=== PATIENT | male | born 1985 | race Caucasian/White ===

== ENCOUNTER 2017-08-19 20:05 | Emergency (ER) | payer SELFPAY ==
[~2017-08-19] VITALS: Ht 182.9 cm; Wt 120.0 kg
[2017-08-19 20:18] VITALS: BP 160/91; PULSE 88; RESP 24; TEMP 97.8; O2SAT 100
[2017-08-19] MEDS ORDERED: DEPA500T3 PO (21:29)
--- NOTE | 2017-08-19 22:02 | PD ---
HPI Chief Complaint: Injury Time Seen by Provider: 21:27 Travel History International Travel<30 days: No Contact w/Intl Traveler<30days: No Traveled to known affect area: No History of Present Illness HPI 32-year-old white male presents to emergency department with complaints of right ankle and Achilles pain. He states that he had injured himself on setting a pole for a dock. He states that he had stepped into the hole and the pole slid down his forefoot. He states that he did not have any significant pain at that time. Continued to work for a short period of time but was also stung by a jellyfish which caused him to stop working. He states later in the day he developed some discomfort in his foot. He went to the emergency department at [facility] on Sunday. An x-ray of the foot showed a possible fracture. He was placed in a splint and advised to follow-up with orthopedics. The orthopedics office declined to see him because he had outstanding balance and he was not paying his bill. The patient has removed his splint and presented to the ER today for a second opinion and treatment. He states he taking ibuprofen without relief. He denies any numbness or tingling. He states the pain is moderate. Worse with movement of the ankle. No alleviating factors. History Past Medical Histgory Narrative Medical Right wrist fracture Tetanus Vaccination: < 5 Years Social History Alcohol Use: Yes Tobacco Use: Yes Allergies-Medications (Allergen,Severity, Reaction): Coded Allergies: No Known Allergies (Unverified , 08/19/17) Reported Meds & Prescriptions Reported Meds & Active Scripts Active Reported Depakote ER (Divalproex Sodium) 500 Mg Kim 500 Mg PO DAILY Review of Systems Except as stated in HPI: all other systems reviewed are Neg Musculoskeletal: Positive: Arthralgias, Limited ROM, Edema, Pain, No: Myalgias , Weakness Physical Exam Narrative GENERAL: This is a well-nourished, well-developed patient, in no apparent distress. SKIN: No rashes, ecchymoses or lesions. Warm and dry. HEAD: Atraumatic. Normocephalic. EYES: PERRL, EOMI, no discharge or injection. No scleral icterus. EARS: Clear NOSE: Nasal turbinates appear normal. THROAT: Mucosa pink and moist. Airway patent. NECK: Trachea midline. supple, moves head freely. LUNGS: Clear to auscultation. CV: Regular in rhythm. ABDOMEN: Soft nontender. EXT: No clubbing cyanosis. Examination of the left lower extremity is unremarkable. Examination of the right lower extremity reveals mild swelling in the ankle and forefoot. He has intact sensation with good pulses. Good Refill. There is no pain associated with flexion extension of the toes. He does have pain in the ankle with movement. He has pain at the Achilles insertion of the heel. There is some mild tenderness in the distal portion of the Achilles. There is no mid or upper calf pain. His compartments are soft. He has no pain in the knee. There is no associated pain with the forefoot in the area in which she was told there was a potential fracture. He has more discomfort in the ankle itself. Data Data Last Documented VS Vital Signs Date Time Temp Pulse Resp B/P (MAP) Pulse Ox O2 Delivery O2 Flow Rate FiO2 08/19/17 20:18 97.8 88 24 160/91 (114) 100 Room Air MDM Medical Screen Exam Complete: Yes Emergency Medical Condition: No Differential Diagnosis MDM: High Differential diagnoses: Fracture, sprain, strain, dislocation, contusion, neurovascular injury, compartment syndrome Narrative Course Narrative Course I've examined the patient. His compartments are soft. I'm able to move his toes without causing referred pain. He does have some mild swelling in the ankle and forefoot. He is intact gross sensation and good pulses. The skin is intact. No signs of infection. There is no significant pain in the forefoot and the area which he was advised that there is a potential fracture. A medical screening exam was performed: At the time of evaluation the presenting medical condition was determined not to be of an emergent nature. The patient was given the option of receiving additional care, but declined. Patient was given options for additional community resources from which to obtain care. The Patient Has Been advised to seek medical attention for their presenting complaint. The patient has been advised to return to the ER at any time if an emergent condition develops. Primary Impression: Encounter for medical screening examination Condition: Michele Willis Aug 19, 2017 22:02
== END 2017-08-19 22:00 | disposition left against medical advice (07) ==
LOC: NEPD 20:05
DX: S99.911A Unspecified injury of right ankle, initial encounter (principal); W22.8XXA Striking against or struck by other objects, initial encounter; Z72.0 Tobacco use
CPT/HCPCS: 99281